=== PATIENT | female | born 1940 | race Caucasian/White ===

== ENCOUNTER 2017-07-20 13:35 | Outpatient (CLI) | payer MEDICARE, OTHER ==
[~2017-07-20 13:35] MED LIST: ALPR-624 PO; ASPI-83 PO; CYCL1DRO6 OP; HYDR-3965 PO; LEVO75TA PO; LOP25T PO; ZOL50T PO
[2017-07-20 14:26] LABS: BASOPHILS % (AUTO) 0.4 % (0-1); EOSINOPHILS # (AUTO) 0.2 X10'3 (0-0.9); EOSINOPHILS % (AUTO) 5.4 % (0-6); HEMATOCRIT 39.4 % (35.0-45.0); LYMPHOCYTES % (AUTO) 24.3 % (21-51); MEAN CORPUSCULAR HEMOGLOBIN 33.1 PG (27.0-31.0); MEAN CORPUSCULAR HGB CONC 35.6 % (33.0-36.5); MEAN PLATELET VOLUME 8.4 FL (7.4-10.4); MONOCYTES # (AUTO) 0.3 X10'3 (0-0.9); MONOCYTES % (AUTO) 7.3 % (2-12); NEUTROPHILS # (AUTO) 2.5 X10'3 (1.8-7.7); NEUTROPHILS % (AUTO) 62.6 % (42-75); PLATELET COUNT 150 X10'3 (140-440); RED BLOOD COUNT 4.23 X10'6 (4.20-5.60); RED CELL DISTRIBUTION WIDTH 12.7 % (11.5-14.5); WHITE BLOOD COUNT 4.1 X10'3 (4.5-11.0)
[2017-07-20 14:31] LABS: INR 1.1 INR; PARTIAL THROMBOPLASTIN TIME 26 SECONDS (22-32); PROTHROMBIN TIME 11.4 SECONDS (9.0-12.0)
[2017-07-20 14:35] LABS: ALANINE AMINOTRANSFERASE 26 U/L (12-78); ALBUMIN 3.9 G/DL (3.4-5.0); ALKALINE PHOSPHATASE 49 IU/L (46-116); ANION GAP 10 (8-16); ASPARTATE AMINO TRANSFERASE 19 U/L (10-37); BILIRUBIN,TOTAL 0.7 MG/DL (0.1-1.0); BLOOD UREA NITROGEN 21 MG/DL (7-18); BUN/CREATININE RATIO 25.6 (6.6-38.0); CALCIUM 9.1 MG/DL (8.5-10.1); CHLORIDE 104 MMOL/L (99-107); CREATININE 0.82 MG/DL (0.40-0.90); GLUCOSE 120 MG/DL (70-104); SODIUM 141 MMOL/L (135-145); TOTAL CARBON DIOXIDE 27.3 MMOL/L (24-32); TOTAL PROTEIN 7.7 G/DL (6.4-8.2); eGFR 68 ML/MIN
== END 2017-07-20 23:59 | disposition home or self-care (01) ==
LOC: LAB 13:35
PROVIDERS: ATTEND Otolaryngology
DX: D69.1 Qualitative platelet defects (principal); I10 Essential (primary) hypertension; J45.909 Unspecified asthma, uncomplicated
CPT/HCPCS: 36415; 80053; 85025; 85576; 85610; 85730

== ENCOUNTER 2017-10-20 00:04 | Emergency (ER) | payer MEDICARE, OTHER ==
[~2017-10-20] VITALS: Ht 175.3 cm; Wt 93.2 kg
[2017-10-20] MEDS ORDERED: CEPH500C5 PO (01:07)
[2017-10-20] MEDS ORDERED: TETanus/Pertussis (Acell)/Diphther VAC/PF (Tdap-Adult) 0.5ml syringe IMVAC ONE (01:10)
[2017-10-20] MEDS ORDERED: cephalexin 500mg capsule PO ONE (01:10)
[2017-10-20 01:25] VITALS: BP 107/66
== END 2017-10-20 01:27 | disposition home or self-care (01) ==
LOC: ER 00:05
DX: S80.11XA Contusion of right lower leg, initial encounter (principal); L03.115 Cellulitis of right lower limb; I10 Essential (primary) hypertension; I48.91 Unspecified atrial fibrillation; Z98.890 Other specified postprocedural states; Z88.8 Allergy status to other drugs, medicaments and biological substances; Z88.5 Allergy status to narcotic agent; Z79.82 Long term (current) use of aspirin; Z79.899 Other long term (current) drug therapy; W01.0XXA Fall on same level from slipping, tripping and stumbling without subsequent striking against object, initial encounter; Y93.89 Activity, other specified; Y92.89 Other specified places as the place of occurrence of the external cause; Y99.8 Other external cause status
CPT/HCPCS: 90471; 90715; 99284

== ENCOUNTER 2017-11-16 00:12 | Emergency (ER) | payer MEDICARE, OTHER ==
[~2017-11-16] VITALS: Ht 175.3 cm; Wt 90.0 kg
[~2017-11-16 00:12] MED LIST changes: +CEPH500C5 PO
[2017-11-16 00:49] LABS: BASOPHILS % (AUTO) 0.3 % (0-1); EOSINOPHILS # (AUTO) 0.2 X10'3 (0-0.9); EOSINOPHILS % (AUTO) 4.2 % (0-6); HEMATOCRIT 38.6 % (35.0-45.0); HEMOGLOBIN 13.3 g/dl (12.0-16.0); LYMPHOCYTES # (AUTO) 0.8 X10'3 (1.1-4.8); LYMPHOCYTES % (AUTO) 17.4 % (21-51); MEAN CORPUSCULAR HEMOGLOBIN 32.5 PG (27.0-31.0); MEAN CORPUSCULAR HGB CONC 34.5 % (33.0-36.5); MEAN CORPUSCULAR VOLUME 94.3 FL (78-98); MEAN PLATELET VOLUME 8.1 FL (7.4-10.4); MONOCYTES # (AUTO) 0.3 X10'3 (0-0.9); MONOCYTES % (AUTO) 6.1 % (2-12); PLATELET COUNT 129 X10'3 (140-440); RED BLOOD COUNT 4.09 X10'6 (4.20-5.60); WHITE BLOOD COUNT 4.3 X10'3 (4.5-11.0)
[2017-11-16 00:57] LABS: INR 1.1 INR; PROTHROMBIN TIME 11.3 SECONDS (9.0-12.0)
[2017-11-16 01:02] LABS: ALANINE AMINOTRANSFERASE 22 U/L (12-78); ALBUMIN 3.8 G/DL (3.4-5.0); ALKALINE PHOSPHATASE 45 IU/L (46-116); ANION GAP 9 (8-16); ASPARTATE AMINO TRANSFERASE 18 U/L (10-37); BILIRUBIN,TOTAL 0.7 MG/DL (0.1-1.0); BLOOD UREA NITROGEN 15 MG/DL (7-18); BUN/CREATININE RATIO 17.2 (6.6-38.0); CALCIUM 9.4 MG/DL (8.5-10.1); CHLORIDE 102 MMOL/L (99-107); CREATININE 0.87 MG/DL (0.40-0.90); GLUCOSE 133 MG/DL (70-104); SODIUM 138 MMOL/L (135-145); TOTAL CARBON DIOXIDE 27.4 MMOL/L (24-32); TOTAL PROTEIN 7.5 G/DL (6.4-8.2); eGFR 63 ML/MIN
[2017-11-16] MEDS ORDERED: ketorolac trometh. 30mg/ml inj. IV ONE (01:40)
[2017-11-16 01:50] VITALS: BP 166/100
== END 2017-11-16 02:21 | disposition home or self-care (01) ==
LOC: ER 00:13
DX: R10.84 Generalized abdominal pain (principal); R11.2 Nausea with vomiting, unspecified; I48.91 Unspecified atrial fibrillation; I10 Essential (primary) hypertension; Z98.890 Other specified postprocedural states; Z88.8 Allergy status to other drugs, medicaments and biological substances; Z88.5 Allergy status to narcotic agent; Z79.82 Long term (current) use of aspirin; Z79.899 Other long term (current) drug therapy
CPT/HCPCS: 36415; 80053; 85025; 85610; 96374; 99284; J1885

== ENCOUNTER 2021-07-26 04:01 | Emergency (ER) | payer MEDICARE, OTHER ==
[~2021-07-26] VITALS: Ht 172.7 cm; Wt 90.9 kg
[~2021-07-26 04:01] MED LIST changes: -CEPH500C5 PO; +SERT-153 PO; -ZOL50T PO
[2021-07-26 05:45] LABS: CLARITY,URINE CLEAR (Clear); COLOR,URINE YELLOW (Yellow); GLUCOSE, URINE NEGATIVE (Neg); KETONES,URINE NEGATIVE (Neg); LEUKOCYTE ESTERASE ,URINE NEGATIVE (Neg); NITRITES, URINE NEGATIVE (Neg); OCCULT BLOOD,URINE NEGATIVE (Neg); PROTEIN,URINE NEGATIVE (Neg); UROBILINOGEN,URINE 0.2 E.U/dL (0.2-1.0)
[2021-07-26 05:51] LABS: UA COLLECTION TYPE CLN CATCH MIDSTREAM
--- NOTE | 2021-07-26 06:45 | NUR ---
Received report from night shift manager nurse. Pt's labs had not been drawn yet. IV established, labs drawn. Pt alert & oriented x3. c/o restless leg syndrome. legs massaged, moved pt up in bed.
[2021-07-26 07:21] LABS: ALANINE AMINOTRANSFERASE 15 U/L (12-78); ALBUMIN 3.3 G/DL (3.4-5.0); ALBUMIN/GLOBULIN RATIO 0.8 (1.1-1.5); ALKALINE PHOSPHATASE 121 IU/L (46-116); ANION GAP 8 (8-16); ASPARTATE AMINO TRANSFERASE 16 U/L (10-37); BASOPHILS % (AUTO) 0.5 % (0-1); BILIRUBIN,TOTAL 0.8 MG/DL (0.1-1.0); BLOOD UREA NITROGEN 12 MG/DL (7-18); BUN/CREATININE RATIO 14.8 (6.6-38.0); CALCIUM 8.6 MG/DL (8.5-10.1); CHLORIDE 104 MMOL/L (99-107); CREATININE 0.81 MG/DL (0.40-0.90); EOSINOPHILS # (AUTO) 0.2 X10'3 (0-0.9); EOSINOPHILS % (AUTO) 5.4 % (0-6); GLUCOSE 115 MG/DL (70-104); HEMATOCRIT 35.1 % (35.0-45.0); LIPASE 56 U/L (73-393); LYMPHOCYTES # (AUTO) 0.8 X10'3 (1.1-4.8); LYMPHOCYTES % (AUTO) 21.5 % (21-51); MEAN CORPUSCULAR HEMOGLOBIN 31.8 PG (27.0-31.0); MEAN CORPUSCULAR HGB CONC 34.1 g/dL (33.0-36.5); MEAN CORPUSCULAR VOLUME 93.1 FL (78-98); MEAN PLATELET VOLUME 8.6 FL (7.4-10.4); MONOCYTES # (AUTO) 0.4 X10'3 (0-0.9); MONOCYTES % (AUTO) 9.4 % (2-12); NEUTROPHILS # (AUTO) 2.4 X10'3 (1.8-7.7); NEUTROPHILS % (AUTO) 63.2 % (42-75); PLATELET COUNT 159 X10'3 (140-440); RED BLOOD COUNT 3.77 X10'6 (4.20-5.60); RED CELL DISTRIBUTION WIDTH 12.6 % (11.5-14.5); SODIUM 139 MMOL/L (135-145); TOTAL CARBON DIOXIDE 27.3 MMOL/L (24-32); TOTAL PROTEIN 7.2 G/DL (6.4-8.2); WHITE BLOOD COUNT 3.8 X10'3 (4.5-11.0); eGFR 68 ML/MIN
[2021-07-26 07:52] VITALS: BP 107/81
== END 2021-07-26 08:12 | disposition home or self-care (01) ==
LOC: ER 04:04
DX: R39.15 Urgency of urination (principal); R33.9 Retention of urine, unspecified; R31.9 Hematuria, unspecified; I48.91 Unspecified atrial fibrillation; I10 Essential (primary) hypertension; Z87.19 Personal history of other diseases of the digestive system; Z88.1 Allergy status to other antibiotic agents; Z88.8 Allergy status to other drugs, medicaments and biological substances; Z79.899 Other long term (current) drug therapy; Z79.82 Long term (current) use of aspirin
CPT/HCPCS: 36415; 71045; 80053; 81003; 83690; 85025; 99284

== ENCOUNTER 2021-09-30 10:13 | Emergency (ER) | payer MEDICARE, OTHER ==
[~2021-09-30] VITALS: Ht 172.7 cm; Wt 85.9 kg
[2021-09-30 15:10] VITALS: BP 132/86
== END 2021-09-30 15:14 | disposition home or self-care (01) ==
LOC: ER 10:13
DX: R07.81 Pleurodynia (principal); R11.0 Nausea; I48.91 Unspecified atrial fibrillation; I10 Essential (primary) hypertension; Z98.890 Other specified postprocedural states; Z88.1 Allergy status to other antibiotic agents; Z79.82 Long term (current) use of aspirin; Z79.899 Other long term (current) drug therapy
CPT/HCPCS: 71101; 99284

== ENCOUNTER 2022-01-14 21:39 | Emergency (ER) | payer MEDICARE, OTHER ==
[~2022-01-14] VITALS: Ht 172.7 cm; Wt 90.9 kg
[2022-01-14 22:16] VITALS: BP 125/73
== END 2022-01-15 02:48 | disposition left against medical advice (07) ==
LOC: ER 21:40
DX: T81.9XXA Unspecified complication of procedure, initial encounter (principal); Z53.21 Procedure and treatment not carried out due to patient leaving prior to being seen by health care provider

== ENCOUNTER 2022-05-14 17:37 | Emergency (ER) | payer MEDICARE, OTHER ==
[~2022-05-14] VITALS: Ht 172.7 cm; Wt 77.3 kg
[2022-05-14] MEDS ORDERED: levetiracetam inj 1,000 MG in normal saline 100ml IV soln 90 ML IV ONE (18:05)
[2022-05-14] MEDS ORDERED: levetiracetam inj 1,000 MG in normal saline 100ml IV soln 100 ML IV ONE (18:16)
[2022-05-14 18:36] LABS: BASOPHILS % (AUTO) 0.5 % (0-1); EOSINOPHILS # (AUTO) 0.1 X10'3 (0-0.9); EOSINOPHILS % (AUTO) 2.2 % (0-6); HEMATOCRIT 36.4 % (35.0-45.0); HEMOGLOBIN 12.7 g/dl (12.0-16.0); LYMPHOCYTES # (AUTO) 0.4 X10'3 (1.1-4.8); LYMPHOCYTES % (AUTO) 12.8 % (21-51); MEAN CORPUSCULAR HEMOGLOBIN 32.3 PG (27.0-31.0); MEAN CORPUSCULAR VOLUME 92.3 FL (78-98); MEAN PLATELET VOLUME 8.3 FL (7.4-10.4); MONOCYTES # (AUTO) 0.3 X10'3 (0-0.9); MONOCYTES % (AUTO) 8.5 % (2-12); NEUTROPHILS # (AUTO) 2.4 X10'3 (1.8-7.7); PLATELET COUNT 132 X10'3 (140-440); RED BLOOD COUNT 3.94 X10'6 (4.20-5.60); RED CELL DISTRIBUTION WIDTH 13.5 % (11.5-14.5); WHITE BLOOD COUNT 3.2 X10'3 (4.5-11.0)
[2022-05-14] MEDS ORDERED: metoclopramide 5 mg/ml inj IV ONE (18:45)
[2022-05-14 18:51] LABS: ALANINE AMINOTRANSFERASE 23 U/L (12-78); ALBUMIN 3.7 G/DL (3.4-5.0); ALKALINE PHOSPHATASE 58 IU/L (46-116); ANION GAP 10 (8-16); ASPARTATE AMINO TRANSFERASE 26 U/L (10-37); BILIRUBIN,TOTAL 0.8 MG/DL (0.1-1.0); BLOOD UREA NITROGEN 8 MG/DL (7-18); BUN/CREATININE RATIO 10.3 (6.6-38.0); CALCIUM 9.9 MG/DL (8.5-10.1); CHLORIDE 104 MMOL/L (99-107); CREATININE 0.78 MG/DL (0.40-0.90); GLUCOSE 119 MG/DL (70-104); POTASSIUM 3.6 MMOL/L (3.5-5.1); SODIUM 141 MMOL/L (135-145); TOTAL CARBON DIOXIDE 26.6 MMOL/L (24-32); TOTAL PROTEIN 7.5 G/DL (6.4-8.2); eGFR 71 ML/MIN
[2022-05-14 20:10] LABS: CLARITY,URINE CLEAR (Clear); COLOR,URINE YELLOW (Yellow); GLUCOSE, URINE NEGATIVE (Neg); KETONES,URINE 15 mg/dl (Neg); LEUKOCYTE ESTERASE ,URINE NEGATIVE (Neg); NITRITES, URINE NEGATIVE (Neg); OCCULT BLOOD,URINE NEGATIVE (Neg); PH,URINE 6.5 (4.8-8.0); PROTEIN,URINE NEGATIVE (Neg); UROBILINOGEN,URINE 0.2 E.U/dL (0.2-1.0)
[2022-05-14 20:17] LABS: UA COLLECTION TYPE CLN CATCH MIDSTREAM
[2022-05-14 21:00] VITALS: BP 125/104
== END 2022-05-14 21:03 | disposition home or self-care (01) ==
LOC: ER 17:37
DX: R56.9 Unspecified convulsions (principal); I10 Essential (primary) hypertension; Z88.1 Allergy status to other antibiotic agents; Z88.8 Allergy status to other drugs, medicaments and biological substances; Z88.6 Allergy status to analgesic agent
CPT/HCPCS: 36415; 70450; 71045; 80053; 81003; 84145; 84484; 85025; 96374; 96375; 99285; J1953; J2765; J3490; A4615

== ENCOUNTER 2024-11-15 10:28 | Inpatient (IN) | payer MEDICARE, OTHER ==
[~2024-11-15] VITALS: Ht 175.3 cm; Wt 84.1 kg
[~2024-11-15 10:28] MED LIST changes: -ALPR-624 PO; -ASPI-83 PO; +BUPR1FIL54 SL; +CHOL50004 PO; -CYCL1DRO6 OP; -HYDR-3965 PO; +LEVE500T PO; +LEVO137C5 PO; -LEVO75TA PO; -LOP25T PO; +METO-395 PO; +MULT-1085 PO; +PANT40TA54 PO; +ROTI1PAT TOP
--- NOTE | 2024-11-15 11:18 | RADIOLOGY REPORT ---
CT CT HEAD INDICATION: Headache, on blood thinner EXAM DATE: 11/15/2024 10:52 AM COMPARISON: CT HEAD on DOS: 05/14/22 RADIATION DOSE: CTDIvol: 39 mGy, DLP: 677 mGy*cm PROCEDURE: CT scans of the head were obtained from the vertex to the skull base. Sagittal and coronal reconstructions were provided. All CT scans at this medical facility are performed using dose modulation techniques as appropriate t o a performed exam including the following: Automated exposure control was utilized; adjustment of th e MA and/or KV according to patient size; and use of iterative reconstruction technique. FINDINGS: There is sulcal and ventricular prominence. The brain otherwise shows normal morphology a nd fuentes-white matter differentiation, without intracranial hemorrhage, extra-axial fluid collection, mass effect or acute large vessel infarct. The ventricles are normal in size. The basal cisterns are patent. The skull and visible facial bones are intact. Prominent opacification of the sphenoid sinus. The paranasal sinuses, mastoid air cells and middle ear cavities are otherwise well-aerated. The sof t tissues of the scalp are unremarkable. IMPRESSION: No acute intracranial abnormality.
--- NOTE | 2024-11-15 12:27 | Physician Documentation ---
History of Present Illness ~ Chief Complaint: Stroke Alert Stated Complaint: GENERAL ILLNESS Time Seen by MD: 11:21 Primary Medical Doctor: [facility] Mode of Arrival: EMS HPI 84-year-old female who presents with an episode of left-sided weakness She tells me that at about 8:00 a.m. this morning, she suddenly felt an abnormal sensation to the left side of her head, describes it as a tingling discomfort. She got up out of her chair, noticed that she was having trouble walking. She felt like it was difficult to move her left leg. She also reports having some difficulty using her left arm. She went and woke up her , and reported to him these symptoms and so he called 911. She states that she felt normal when she went to bed last night and also thinks that she felt normal when she woke up this morning. Currently she also feels normal, denies any symptoms at this time. No recent infectious symptoms. No current headache. No visual changes. No difficulty with speech. No tingling numbness or weakness to her extremities currently. No history of stroke or TIA. She has been on anticoagulation in the past but not for the past 1 year. Her did give her a dose of Xarelto this morning that was left over from her previous meds. Does have a history of seizures and is on seizure medication, but denies that this was similar to past seizures. Medication Reconciliation Allergies: Coded Allergies: amoxicillin (Verified Allergy, Unknown, 11/15/24) MOUTH RASH clavulanic acid (Verified Allergy, Unknown, 11/15/24) MOUTH RASH diphenhydramine (Verified Allergy, Unknown, 11/15/24) hydroxyzine (Verified Allergy, Unknown, 11/15/24) morphine (Verified Allergy, Unknown, 11/15/24) prochlorperazine (Verified Allergy, Unknown, 11/15/24) nalbuphine (Verified Adverse Reaction, Unknown, 01/14/22) ITCHING, ANXIETY ondansetron (Verified Adverse Reaction, Unknown, headache, 07/26/21) Scheduled Buprenorphine HCl/Naloxone HCl (Bupreno-Nalox 2-0.5 mg Sl Film), 1 STRIP SL BID, (Reported) Cholecalciferol (Vitamin D3) (Vitamin D3), 1 CAP PO DAILY, (Reported) Docosahexanoic Acid/Epa (Fish Oil 1,000 Mg Softgel), 1,000 MG PO DAILY, (Reported) Levetiracetam (Levetiracetam), 2 TAB PO BID, (Reported) Levothyroxine Sodium (Levothyroxine Sodium), 1 TAB PO DAILY, (Reported) Metoprolol Succinate (Metoprolol Succinate), 1 TAB PO DAILY, (Reported) Multivitamin (Multi Vitamin Daily), 1 TAB PO DAILY, (Reported) Pantoprazole Sodium (Pantoprazole Sodium), 40 MG PO BKF, (Reported) Rotigotine (Neupro), 1 PATCH TOP DAILY, (Reported) Sertraline HCl (Sertraline HCl), 2 TAB PO DAILY, (Reported) Discontinued Medications Levothyroxine Sodium (Levothyroxine), 1 CAP PO DAILY, (Reported) Discontinued Reason: patient no longer taking Past Medical History Past Medical History: Seizures, Atrial Fibrillation, Hypertension, Diverticulitis, Breast Cancer Past Surgical History: orthopedic surgeries Alcohol Use: None Drug Use: none Lives with: Family Lives In: Home Occupation: retired Review of Systems All Other Systems at this time: Reviewed and Negative Constitutional: Denies: fever Neurological: Denies: headache, dizziness, left sided numbness, right sided numbness, left sided weakness, right sided weakness Physical Exam Vital Signs: Temperature: 98.2, Source: Oral, Heart Rate: 52, Respiratory Rate: 16, BP: 148/79, Pulse Oximetry: 95, Weight: 84.090 Oxygen Flow Rate: 0 General Appearance General: This is a pleasant and overall well-appearing elderly woman, and neighbor at bedside HEENT: Atraumatic, oropharynx is moist. No facial droop, smile is symmetric Heart: Regular rate and rhythm, no audible murmur, normal-appearing peripheral perfusion Lungs: Clear breath sounds bilateral, normal work of breathing, normal oxygen saturation on room air Abdomen: Soft, nondistended Neuro: Alert and oriented. Cranial nerves 2-12 grossly intact, no facial droop , clear speech. Normal strength in major muscle groups of the upper and lower extremities. No arm or leg drift. She is able to stand and walk without any apparent difficulty at this time. No focal neurologic deficits normally. She does have some difficulty with memory function. NIH stroke scale 0 Psychiatric: Calm and cooperative with exam Progress Results/Orders Results/Orders Orders - NESTOR ARREDONDO MD Ct Head (11/15/24 10:50) Monitor (11/15/24 12:16) 2 Large Bore Ivs (11/15/24 12:16) Chest,Single View (11/15/24 12:46) Accucheck (11/15/24 12:16) Ct Stroke Alert (11/15/24 12:16) Page Hospitalist (11/15/24 12:18) Completed Orders - NESTOR ARREDONDO MD Ct Head (11/15/24 10:50) Cbc/Diff (11/15/24 12:16) Electrocardiogram (11/15/24 12:16) Chest,Single View (11/15/24 12:46) BMP (11/15/24 12:16) PTT (11/15/24 12:16) Pt Inr (11/15/24 12:16) MG (11/15/24 12:16) Vital Signs 11/15/24 11/15/24 11/15/24 11/15/24 10:31 10:43 10:52 11:48 Temp 98.2 98.2 Pulse 62 58 52 Resp 16 16 16 16 B/P (MAP) 154/90 136/75 (95) 148/79 (102) Pulse Ox 95 94 95 O2 Flow Rate 0 0 0 EKG/XRAY/CT/US/VASC/MRI CT : Impression Head CT: I personally interpreted the CT scan, and this shows no fracture or internal hemorrhage Consults/PCP Consults/PCP : Additional Comment Consult: I spoke to the internal medicine service, for admission in the hospital Medical Decision Making Differential Dx:Considerations: Include: CVA, Electrolyte imbalance, Mass lesion, Subarachnoid Hemorrhage, TIA Assessment 84-year-old female who presents with an episode of left-sided neurologic symptoms. Here in the ED she is currently asymptomatic, has no focal neurologic deficits on my exam, has NIH stroke scale of 0. Head CT obtained shows no intracranial hemorrhage. I did not give her an aspirin given that her gave her a dose of Xarelto this morning. Overall, this seems like you could represent a TIA, and so she will be admitted to the medicine service for further stroke workup and preventative treatment Departure Impression: Primary Impression: TIA (transient ischemic attack) Additional Impression: Left-sided weakness Referrals: NO PRIMARY CARE PROVIDER (PCP) Signature Scribe Signature: na Attestation: NESTOR Darden MD Nov 15, 2024 12:27
[2024-11-15] MEDS ORDERED: HYDROcodone/acetaminophen 5mg/325mg tablet PO PRN (12:35)
[2024-11-15] MEDS ORDERED: potassium Cl 20 mEq SR tablet PO PRN ×2 (12:35)
[2024-11-15] MEDS ORDERED: potassium Cl 40MEQ/1/2NS 520ml 520 ML IV PRN (12:35)
[2024-11-15] MEDS ORDERED: magnesium sulf-water 2g/50mL 50 ML IV PRN (12:35)
[2024-11-15] MEDS ORDERED: HYDROcodone/acetaminophen 10/325mg tab PO PRN (12:35)
[2024-11-15] MEDS ORDERED: mag hydrox/Alum hydrox/simeth 30ml oral suspension PO PRN (12:35)
[2024-11-15] MEDS ORDERED: magnesium sulf-water 4G/100mL 100 ML IV PRN (12:35)
[2024-11-15] MEDS ORDERED: ondansetron/PF 4mg/2ml inj IV PRN (12:35)
[2024-11-15] MEDS ORDERED: magnesium hydroxide 30ml (MOM) UD suspension PO PRN (12:35)
--- NOTE | 2024-11-15 12:38 | ELECTROCARDIOGRAPH REPORT ---
[facility] Test Date: 2024-11-15 Test Time: 12:37:05 Pat Name: RORY MARTINES Department: [facility] Patient ID: [facility]-[id number] Room: Gender: F Edger Tailer: : 1940 Requested By: NESTOR ARREDONDO Order Number: [id number] Reading MD: Measurements Intervals [place] Rate: 55 P: 45 WV: 227 QRS: 38 QRSD: 90 T: 49 QT: 442 QTc: 423 Interpretive Statements Sinus bradycardia Prolonged WV interval Probable left atrial enlargement Please click the below link to view image of tracing.
[2024-11-15 12:57] LABS: MEAN PLATELET VOLUME 7.9 FL (7.4-10.4); RED CELL DISTRIBUTION WIDTH 12.9 % (11.5-14.5)
[2024-11-15 13:12] LABS: APTT 35 SECONDS (22-32); INR 1.5 INR
[2024-11-15 13:15] LABS: CHOL/HDL RATIO 5.6 (0.00-4.99); CREATININE 0.94 MG/DL (0.40-0.90); LDL CHOLESTEROL 152 MG/DL (50-100); TOTAL CARBON DIOXIDE 29.6 MMOL/L (24-32); eCRCL 48 ML/MIN; eGFR 57 ML/MIN
[2024-11-15] MEDS: PERFLUTREN PROTEIN-A MICROSPHR (Optison) 0.22 MG/ML 3ML VIAL IV ONE (13:15)
--- NOTE | 2024-11-15 13:41 | RADIOLOGY REPORT ---
DI CHEST,SINGLE VIEW, HISTORY: Stroke Alert COMPARISON: DI CHEST,SINGLE VIEW on DOS: 07/05/23, CHEST,SINGLE VIEW on DOS: 05/14/22, UNI RIBS WITH PA CHEST on DOS: 09/30/21 DI CHEST,SINGLE VIEW on DOS: 07/05/23, CHEST,SINGLE VIEW on DOS: 05/14/22, UNI RIBS WITH PA CHEST on DOS : 09/30/21 TECHNICAL DATA: 1 view of the chest was obtained. FINDINGS: Lines and tubes: None Cardiomediastinal silhouette: prominent Pulmonary vasculature: normal Lung expansion: normal Lung airspace: normal Lung interstitium: normal Pleura: Trace left pleural effusion. Pneumothorax: no Bones: Unremarkable Other: no IMPRESSION: Trace left pleural effusion.
[2024-11-15] MEDS ORDERED: PANT40TA54 PO (14:07)
[2024-11-15] MEDS ORDERED: LEVO125T8 PO (14:26)
[2024-11-15] MEDS ORDERED: OMEG-5 PO (14:26)
--- NOTE | 2024-11-15 14:27 | [facility] CONSULT REPORT ---
[facility] Procedure Note [facility] Procedure Note Consult [facility] Note # Demographics Consult Type: General Neurology Patient Location: Emergency Room First Name: RORY Last Name: CONRAD Date of : 1940 Age: 84 Gender: Female Facility: [facility] Time of Initial Page (): 11/15/2024 13:29 First Contact with Site (): 11/15/2024 13:30 # HPI Chief Complaint: - numbness History: 84 y/o F presented with strange sensation in L side of her head associated with LUE/LLE numbness and weakness, which resolved after 10 minutes. This occurred around 8 AM. She denies a headache, double vision, loss of vision, slurred speech or word finding difficulty. She has a history of a TIA in the past. Duration: - resolved # Scores Time of exam and NIHSS (): 11/15/2024 14:16 Level of Consciousness 1a: [0] = Alert; keenly responsive LOC Questions 1b: [1] = Answers one correctly LOC Commands 1c: [0] = Performs both tasks correctly Best Gaze 2: [0] = Normal Visual 3: [0] = No visual loss Facial Palsy 4: [0] = Normal symmetrical movements Motor Arm Left 5a: [0] = No drift Motor Arm Right 5b: [0] = No drift Motor Leg Left 6a: [0] = No drift Motor Leg Right 6b: [0] = No drift Limb Ataxia 7: [0] = Absent Sensory 8: [0] = Normal Best Language 9: [0] = No aphasia Dysarthria 10: [0] = Normal Extinction and Inattention 11: [0] = No abnormality NIHSS Total: 1 # Exam Vitals: vital signs reviewed SBP: 136 DBP: 71 # ROS Additional: - complete review of systems otherwise negative # PMH-FH-SH Past Medical History: - TIA Medications: - No antithrombotics or anticoagulants reported MVI # Data Head CT: - no bleed - per radiologist read # Assessment Impression: - Transient Ischemic Attack # Plan Thrombolytic/Intervention: NOT IV Thrombolysis or IA Intervention candidate Thrombolytic Exclusion (< 3 hour window): - non-disabling deficit Intraarterial Exclusion: - clinical exam not consistent with presence of large vessel occlusion (LVO), can reconsider if LVO found on vascular imaging Blood Pressure Management: - labetalol Target Blood Pressure: - SBP < 220 - DBP < 120 Labs: - CBC - comprehensive metabolic panel - hemoglobin A1c - lipid panel - ua - troponin - TSH Imaging: (urgency: routine): - MRI Brain without contrast - MR Angiogram Neck with contrast - MR Angiogram Head without contrast Diagnostic Test: - echo with bubble study Therapy/Evaluation: - NPO until swallow evaluation - PT/OT evaluation - speech/swallow consultation Medication: - aspirin 81 mg PLUS clopidogrel (Plavix) 75 mg for 21 days, then monotherapy therafter - start statin with goal of LDL < 70 DVT Prophylaxis: - enoxaprin (Lovenox) 40 mg subcutaneously daily Other: - If patient has any neurological deterioration please call me back immediately - permissive hypertension - will need event monitor or loop recorder as outpatient if atrial fibrillation not found as inpatient - I have discussed my recommendations with the referring provider - telemetry monitoring Disposition: admit # Logistics Attestation of consult completion: The patient is located at: [facility]. Facility staff participated in the visit. I performed this telemedicine visit from my offsite office utilizing interactive 2 way audio and visual telecommunication technology at the request of the onsite emergency room provider. Total time spent in telemedicine encounter: I spent 20 minutes reviewing clinical data and/or imaging, obtaining history, examining the patient, communicating with the onsite care team, and in preparation of this report. # Demographics First Name: RORY Last Name: CONRAD Facility: [facility] Electronically signed at 11/15/2024 14:26 (Aurelia Time) by Safia Erickson MD Neuro Consult Order placed for: Yes SAFIA ERICKSON MD Nov 15, 2024 14:26
--- NOTE | 2024-11-15 14:33 | HISTORY AND PHYSICAL ---
History & Physical Providers to CC ~ History of Present Illness Reason for Admit\Complaint: CVA vs TIA History of Present Illness Candace Ortez is a 84-year-old female with a past medical history of seizures and TIA who was brought to the ED via ambulance with chief complaint of acute onset left upper extremity weakness with associated symptoms of tingling and abnormal sensation to the left side of her head that started this morning around 8:00 am which now all have subsided. Patient is a poor historian. Patient denies prior NM/CAD, CVA, cardiac arrhythmia, DVT/PE, or GIB. Patient denies chest pain, palpitations, shortness of breath, abdominal pain, n/v/d, fever, chills, dysuria, blurry vision, fall or loss of consciousness, slurred speech. Allergies: Coded Allergies: amoxicillin (Verified Allergy, Unknown, 11/15/24) MOUTH RASH clavulanic acid (Verified Allergy, Unknown, 11/15/24) MOUTH RASH diphenhydramine (Verified Allergy, Unknown, 11/15/24) hydroxyzine (Verified Allergy, Unknown, 11/15/24) morphine (Verified Allergy, Unknown, 11/15/24) prochlorperazine (Verified Allergy, Unknown, 11/15/24) nalbuphine (Verified Adverse Reaction, Unknown, 01/14/22) ITCHING, ANXIETY ondansetron (Verified Adverse Reaction, Unknown, headache, 07/26/21) Home Medications Home Medications Active Reported Fish Oil 1,000 Mg Softgel (Docosahexanoic Acid/Epa) 300 Mg-1,000 Mg Capsule 1,000 Mg PO DAILY 30 Days WITH MEALS Levothyroxine Sodium 125 Mcg Tablet 1 Tab PO DAILY Pantoprazole Sodium 40 Mg Tablet.dr 40 Mg PO BKF Multi Vitamin Daily (Multivitamin) 1 Each Tablet 1 Tab PO DAILY Vitamin D3 (Cholecalciferol (Vitamin D3)) 125 Mcg (5000 Unit) Capsule 1 Cap PO DAILY 30 Days Neupro (Rotigotine) 3 Mg/24 Hour Patch.td24 1 Patch TOP DAILY Bupreno-Nalox 2-0.5 mg Sl Film (Buprenorphine HCl/Naloxone HCl) 2 Mg-0.5 Mg Film 1 Strip SL BID Metoprolol Succinate 25 Mg Tab.sr.24h 1 Tab PO DAILY Levetiracetam 500 Mg Tablet 2 Tab PO BID Sertraline HCl 50 Mg Tablet 2 Tab PO DAILY Past Medical History Past Medical History Seizures TIA Past Surgical History Surgical History Comment Denies Family History Family History: Patient reports no known family medical history. Past Social History Social History Comment Alcohol: Denies Tobacco: Denies, never Illicit drugs: Denies Living situation: Lives at home with spouse ROS ROS Other than positives in HPI, all 14 review of systems are negative Exam Vitals: Vital Signs Date Time Temp Pulse Resp B/P (MAP) Pulse Ox O2 Delivery O2 Flow Rate FiO2 11/15/24 13:08 51 16 136/71 96 11/15/24 12:50 98.2 0 General: A&Ox 3, NAD HEENT: Normocephalic, PERRLA Neck: Supple, trachea midline, no JVD Chest: Clear to auscultation bilaterally Cardiovascular: Bradycardic Abdomen: Soft and nontender Extremities: No cyanosis/clubbing/or edema Central Nervous System: CN II-XII intact, no focal deficits Musculoskeletal: No paraspinal muscle tenderness, no muscle spasm Skin: Warm and intact Diagnostic Data Last Recorded Lab Results: 11/15/24 1248 11/15/24 1248 Diagnostic Data: Laboratory Tests Test 11/15/24 12:48 Prothrombin Time 15.1 SECONDS (9.0-12.0) H INR International Normalized Ratio 1.5 INR Activated Partial Thromboplast Time 35 SECONDS (22-32) H Coagulation Comments Additional Plan Assessment & Plan CVA vs TIA OLIVER vs CKD Hyperlipidemia -CT head negative, EKG sinus at 55bpm, prolonged SWETHA 227 -Teleneurology consulted with impression of TIA -start DAPT x 21 days and monotherapy thereafter, statin, permissive hypertension <220/110 -follow TTE, MRI head, MRA head/neck, telemetry, UA, BSS DVT/VTE Prophylaxis: heparin Code Status: Full Code I spent a total of 35 minutes discussing Advanced Care Planning measures with the patient. Advance care planning: Discussed with patient the importance of advance care planning in case of emergent situation. We discussed various resuscitative measures/ ACP with the patient at the time of admission. Patient voiced understanding and patient has decided on a full code status. Date of Service: Nov 15, 2024 Billing Provider: RICK LOPEZ WEIGHER AND MIXER Common Visit Codes: 50254-[id number] INP/OBS CARE (HIGH) Secondary Visit Codes: 34802-[id number] CARE PLAN 30 MINUTES RICK LOPEZ WEIGHER AND MIXER Nov 15, 2024 14:33
[2024-11-15 14:52] VITALS: BP 138/75; PULSE 61; RESP 16; TEMP 98; O2SAT 98
[2024-11-15] MEDS: aspirin 81mg, enteric-coated 1 TAB TABLET.DR PO ONE (15:00)
[2024-11-15 16:30] VITALS: BP 124/71; PULSE 63; RESP 19; TEMP 97.8; O2SAT 98
[2024-11-15 17:17] VITALS: RESP 19; O2SAT 97
[2024-11-15 18:00] VITALS: BP 128/78; PULSE 57; RESP 16; TEMP 97.2; O2SAT 96
[2024-11-15 20:00] VITALS: RESP 16; O2SAT 96
[2024-11-15] MEDS: K and/or MAG REPLACEMENT MC SCH (20:00)
[2024-11-15] MEDS: docusate sod 100mg capsule PO SCH (20:00)
--- NOTE | 2024-11-15 20:36 | RADIOLOGY REPORT ---
[facility] EXAMINATION: MR MRI HEAD INDICATION: r/o CVA COMPARISON: CT CT HEAD on DOS: 11/15/24, CT HEAD on DOS: 05/14/22 TECHNIQUE: Multiplanar, multisequence magnetic resonance imaging of the brain was performed without the use of i ntravenous contrast. FINDINGS: Moderate diffuse brain atrophy. Oiwr-vy-ybdysoxw chronic small-vessel ischemic changes. Motion artifact limits evaluation of the blood sensitive sequence and sagittal T1. No evidence of acu te or subacute hemorrhage on the T1 and T2 images. No masses, mass effect, midline shift, herniation or cytotoxic edema following a large vascular territory. No intra-axial or extra-axial fluid collecti ons. No evidence of hydrocephalus. Cavum septum pellucidum et vergae. The visualized vascular flow v oids are maintained. The pituitary gland, sella and parasellar regions unremarkable. The cerebellar tonsils are normal pos ition. The cerebellum is unremarkable. Bilateral lens replacement. Otherwise, orbits and globes unremarkable. Near-complete opacification o f the left sphenoid sinus wall hyperostosis consistent with chronic sinus disease. Mild mucoperiostea l thickening of the ethmoid air cells. Mastoids are clear. No worrisome calvarial lesions. IMPRESSION: Study is limited by motion artifact. Otherwise, no evidence of acute intracranial abnormalities. Left sphenoid chronic sinus disease with mild mucoperiosteal thickening of the ethmoid air cells.
--- NOTE | 2024-11-15 21:05 | RADIOLOGY REPORT ---
PROCEDURE: MR MRA HEAD INDICATION: CVA 11/15/2024 07:28 PM COMPARISON: CT CT HEAD on DOS: 11/15/24, CT HEAD on DOS: 05/14/22 TECHNIQUE: MRA head without intravenous contrast. 3D image postprocessing was performed on a dedicated workstation and images were used for interpretat ion and reporting. FINDINGS: There is mild atherosclerotic narrowing of the anterior yiyhtf-hv-Ovcvbp without large vessel occlusi on. There is normal flow related signal within the remainder of the cerebral vasculature. The basila r artery is patent. The intracranial vertebral arteries are unremarkable. There is no evidence of an eurysm. IMPRESSION: 1. No evidence of occlusion or aneurysm. 2. Mild atherosclerotic narrowing of the intracranial vasculature.
--- NOTE | 2024-11-15 21:10 | RADIOLOGY REPORT ---
EXAM: MR MRA NECK DATE OF SERVICE: 11/15/2024 07:55 PM ORDERING PHYSICIAN: RICK LOPEZ REASON FOR EXAM: CVA TECHNIQUE: Time of flight mra images were acquired of the neck. COMPARISON: MR MRA HEAD on DOS: 11/15/24, MR MRI HEAD on DOS: 11/15/24, CT HEAD on DOS: 05/14/22 FINDINGS: The origin of the common carotid and vertebral arteries are not seen due to motion. The visualized common carotid, internal carotid, and vertebral arteries are patent with no evidence f or significant stenosis, occlusion, or dissection. There is no significant narrowing at the carotid b ulbs per NASCET criteria. IMPRESSION: Limited exam with no acute noncontrast MRA abnormality of the major neck arterial vasculature.
[2024-11-15] MEDS: normal saline 1000ml 1,000 ML IV SCH (21:20)
[2024-11-15] MEDS: heparin, porcine 5000 units/ml vial SQ SCH (21:21)
[2024-11-15 22:00] VITALS: BP 124/71; PULSE 63; RESP 19; TEMP 97.8; O2SAT 98
[2024-11-16 05:47] LABS: MEAN PLATELET VOLUME 7.9 FL (7.4-10.4); RED CELL DISTRIBUTION WIDTH 12.7 % (11.5-14.5)
[2024-11-16 05:57] LABS: CREATININE 0.91 MG/DL (0.40-0.90); TOTAL CARBON DIOXIDE 29.7 MMOL/L (24-32); eCRCL 50 ML/MIN; eGFR 59 ML/MIN
[2024-11-16 06:00] VITALS: BP 131/76; PULSE 52; RESP 18; TEMP 97.7; O2SAT 96
[2024-11-16] MEDS: aspirin 81mg, enteric-coated 1 TAB TABLET.DR PO SCH (07:49)
[2024-11-16 07:55] LABS: EOSINOPHILS % (MANUAL) 5.0 % (0-6); LYMPHOCYTES % (MANUAL) 39.0 % (21-51); MONOCYTES % (MANUAL) 7.0 % (2-12); NEUTROPHILS % (MANUAL) 49.0 % (42-75); PLATELET ESTIMATE DECREASED
[2024-11-16 08:00] VITALS: RESP 18; O2SAT 94
[2024-11-16 08:00] LABS: LARGE PLATELETS FEW
[2024-11-16 09:55] LABS: LEUKOCYTE ESTERASE ,URINE NEGATIVE (Neg); NITRITES, URINE NEGATIVE (Neg); OCCULT BLOOD,URINE NEGATIVE (Neg)
[2024-11-16 10:00] VITALS: BP 154/76; PULSE 58; RESP 18; TEMP 98.3; O2SAT 94
[2024-11-16 10:09] LABS: UA COLLECTION TYPE NON-SPECIFIED
--- NOTE | 2024-11-16 10:55 | PROGRESS NOTE ---
Daily Progress Note Providers to CC ~ Objective Vital Signs Date Time Temp Pulse Resp B/P (MAP) Pulse Ox O2 Delivery O2 Flow Rate FiO2 11/16/24 06:00 97.7 52 18 131/76 (94) 96 Room Air 11/15/24 20:00 0.0 Result Diagram: 11/16/24 0519 11/16/2419 Coagulation Studies Laboratory Tests Test 11/15/24 12:48 Prothrombin Time 15.1 SECONDS (9.0-12.0) H INR International Normalized Ratio 1.5 INR Activated Partial Thromboplast Time 35 SECONDS (22-32) H Coagulation Comments RICK LOPEZ LOG GETTER Nov 16, 2024 10:55
[2024-11-16] MEDS: pantoprazole 40mg Tablet.DR PO SCH (13:30)
[2024-11-16] MEDS ORDERED: CLOP75TA34 PO (14:54)
[2024-11-16] MEDS ORDERED: ASPI-1071 PO (14:54)
[2024-11-16] MEDS ORDERED: ATOR20TA66 PO (14:54)
[2024-11-16] MEDS ORDERED: LOSA25TA41 PO (14:55)
--- NOTE | 2024-11-16 17:57 | CARDIOLOGY REPORT ---
APPROVED REPORT EXAM: Comprehensive 2D, Doppler, and color-flow Echocardiogram with saline. Patient Location: [facility] Blood Pressure: 138/75 mmHg Heart Rate: 55 bpm Rhythm: Sinus Bradycardia Indications Syncope Hypertension AFIB No traveling inventory associate previous echo 07/05/23 [facility] 65-70% EF ; m MR AI TR 2D Dimensions LA Diam4.2 cm IVSd 1.3 (0.7-1.1cm) LVDd 4.6 cm PWd 1.3 (0.7-1.1cm) IVSs 1.7 (0.8-1.2cm) LVDs 2.6 (2.5-4.0cm) Aortic Root(2D) 3.4 cm PWs 1.6 (0.8-1.2cm) LVOT Diameter 2.17 (1.8-2.4cm) LVEF(%) 74.2 (>50%) IVC 18.37 mmFS (%) 43.0 % SV 72.6 ml CO 4.0 L/min M-Mode Dimensions MV EPSS 0.3 (<0.5cm) Aortic Valve AoV Peak Sj. 167.4 cm/s AoV VTI 36.6 cm AO Peak GR. 11.2 mmHg AO Mean GR. 5 mmHg LVOT VTI 30.51 cm LVOT Peak Sj. 134.6 cm/s CATHY(VTI)/BSA 3.07 cm2/m2 CATHY (VTI) 3.07 cm2 Mitral Valve MV E Velocity 92.4 cm/s MV Peak Gr. 5 mmHg MV DECEL TIME 216 ms MV A Velocity 77.8 cm/s MV PHT 72 ms E/A Ratio 1.2 MVA (PHT) 3.06 cm2 MR PVif682.4 cm/s MV FEiv157.8 cm/sMR PG Max70.4 mmHg TDI Medial E' P. V 9.45 cm/s E/Medial E' 9.8 Tricuspid Valve TR P. Velocity 279 cm/s RAP ESTIMATE 10 mmHg TR Peak Gr. 31 mmHg RVSP 41 mmHg Pulmonary Vein S1 Velocity 55.0 cm/s D2 Velocity 36.8 cm/s PVa Qpixxbvs54.1 cm/s PVa [id number] msec LEFT VENTRICLE Normal LV size and function. Mild concentric hypertrophy. Overall LVEF is 70%. RIGHT VENTRICLE RV appears mildly dilated with normal contractility. RVSP is estimated at 41 mmHG. ATRIA Left atrium is mildly dilated. Saline study was performed with 2 IV injections of 10 ccs of agitated normal saline at rest, with cough, and with valsalva. Negative saline study for right to left flow. M obile interatrial septum - no flow detected. AORTIC VALVE Trileaflet AV appears sclerotic without stenosis. Mild insufficiency. MITRAL VALVE MV is thickened with mild annular thickenind and no stenosis. Trace to mild mitral regurgitation. TRICUSPID VALVE The tricuspid valve is normal in structure. Moderate tricuspid regurgitation. PULMONIC VALVE The pulmonary valve is normal in structure. Trace pulmonic regurgitation. GREAT VESSELS The aortic root is normal in size. The IVC is normal in size and collapses >50% with inspiration. PERICARDIUM Trivial circumferential pericardial effusion with no evidence of hemodynamic compromise. Other Information Study Quality: Adequate Conclusion Overall LVEF is 70%. Normal LV size and function. Mild concentric hypertrophy. RV appears mildly dilated with normal contractility. RVSP is estimated at 41 mmHG. Saline study was performed with 2 IV injections of 10 ccs of agitated normal saline at rest, with cou gh, and with valsalva. Negative saline study for right to left flow. Mobile interatrial septum - no flow detected. Trace to mild mitral regurgitation. Trileaflet AV appears sclerotic without stenosis. Mild insufficiency. Trace to mild mitral regurgitation. Moderate tricuspid regurgitation. Trace pulmonic regurgitation. Trivial circumferential pericardial effusion with no evidence of hemodynamic compromise.
--- NOTE | 2024-11-16 18:01 | DISCHARGE SUMMARY ---
Discharge Summary Providers to CC ~ Discharge Summary Admission Diagnosis: TIA vs CVA Hospital Course DATE OF ADMISSION: 11/15/24 DATE OF DISCHARGE: 11/16/24 Discharge Diagnosis\Comment: TIA CVA- ruled out OLIVER- cannot exclude Hyperlipidemia Operations\Procedures: None Consultants: Teleneurologist Safia Dewey Complications: None Condition on DC: Stable New Medications: Losartan Potassium (Losartan Potassium) 25 Mg Tablet 1 TAB PO DAILY for 30 Days, #30 TAB 0 Refills Aspirin (Ecotrin*) 81 Mg Tablet.dr 1 TAB PO DAILY for 90 Days, #90 TAB.SR Atorvastatin Calcium (Atorvastatin Calcium) 20 Mg Tablet 40 MG PO HS for 90 Days, #90 TAB Clopidogrel Bisulfate (Clopidogrel) 75 Mg Tablet 75 MG PO DAILY for 20 Days, #20 TAB Do not stop medication unless instructed by prescriber. Continued Medications: Buprenorphine HCl/Naloxone HCl (Bupreno-Nalox 2-0.5 mg Sl Film) 2 Mg-0.5 Mg Film 1 STRIP SL BID Cholecalciferol (Vitamin D3) (Vitamin D3) 125 Mcg (5000 Unit) Capsule 1 CAP PO DAILY for 30 Days, #30 CAP 0 Refills Docosahexanoic Acid/Epa (Fish Oil 1,000 Mg Softgel) 300 Mg-1,000 Mg Capsule 1000 MG PO DAILY for 30 Days, #90 CAP 0 Refills WITH MEALS Levetiracetam (Levetiracetam) 500 Mg Tablet 2 TAB PO BID Levothyroxine Sodium (Levothyroxine Sodium) 125 Mcg Tablet 1 TAB PO DAILY Multivitamin (Multi Vitamin Daily) 1 Each Tablet 1 TAB PO DAILY, 0 Refills Pantoprazole Sodium (Pantoprazole Sodium) 40 Mg Tablet.dr 40 MG PO BKF, TAB.SR Rotigotine (Neupro) 3 Mg/24 Hour Patch.td24 1 PATCH TOP DAILY Sertraline HCl (Sertraline HCl) 50 Mg Tablet 2 TAB PO DAILY, TAB Discontinued Medications: Metoprolol Succinate (Metoprolol Succinate) 25 Mg Tab.sr.24h 1 TAB PO DAILY Discharge Summary: History of Present Illness Candace Ortez is a 84-year-old female with a past medical history of seizures and TIA who was brought to the ED via ambulance with chief complaint of acute onset left upper extremity weakness with associated symptoms of tingling and abnormal sensation to the left side of her head that started this morning around 8:00 am which now all have subsided. Patient is a poor historian. Patient denies prior NM/CAD, CVA, cardiac arrhythmia, DVT/PE, or GIB. Patient denies chest pain, palpitations, shortness of breath, abdominal pain, n/v/d, fever, chills, dysuria, blurry vision, fall or loss of consciousness, slurred speech. Hospital Course Initial diagnostic findings including CT head, EKG, chest x-ray, urinalysis were unremarkable. Teleneurologist was consulted and patient was started on DAPT and statin. Subsequent workups including MRI head, MRA head/neck were unremarkable. TTE showed LVEF 70%, RVSP 41mmHg, trivial circumferential pericardial effusion with no evidence of hemodynamic compromise. Telemetry remained sinus in 80s. Patient did not experience further complications throughout the entire hospital stay and remained clinically and hemodynamically stable. Patient verbalized willingness to be discharged. Patient was seen and examined on the day of discharge. On day of discharge, vss and labs unremarkable. All labs, diagnostic workups, discharge plan discussed with patient in details during visit before discharge. All questions and concerns answered to the best of my professional knowledge. Patient is to be discharged to home to self and to follow-up with PCP within 2 weeks. Physical Exam General: A&Ox 3, NAD HEENT: Normocephalic, PERRLA Neck: Supple, trachea midline, no JVD Chest: Clear to auscultation bilaterally Cardiovascular: RRR, S1&S2 GI: Soft and nontender Extremities: No cyanosis/clubbing/or edema PROCESS SAFETY ENGINEER: CN II-XII intact, no focal deficits Musculoskeletal: No paraspinal muscle tenderness, no muscle spasm Skin: Warm and intact *Problems/Diagnosis: (1) TIA (transient ischemic attack) Status: Acute Total Time Spent on D/C: > 30 Minutes Date of Service: Nov 16, 2024 Billing Provider: RICK LOPEZ Common Visit Codes: 84756-IIS/OBS DISCH DAY >30min RICK LOPEZ Nov 16, 2024 18:01
== END 2024-11-16 16:00 | disposition home or self-care (01) | DRG 69 ==
LOC: ER 10:29 → ED HOLD 12:38 → ORTHO 4S 14:41
PROVIDERS: ADMIT Nurse Practitioner Family; ATTEND Nurse Practitioner Family
DX: G45.9 Transient cerebral ischemic attack, unspecified (principal); N17.9 Acute kidney failure, unspecified; I48.91 Unspecified atrial fibrillation; F41.9 Anxiety disorder, unspecified; I10 Essential (primary) hypertension; E78.5 Hyperlipidemia, unspecified; Z88.5 Allergy status to narcotic agent; Z88.0 Allergy status to penicillin; Z85.3 Personal history of malignant neoplasm of breast; Z88.8 Allergy status to other drugs, medicaments and biological substances
CPT/HCPCS: 36415; 70450; 70544; 70547; 70551; 71045; 80048; 80053; 80061; 81003; 82948; 83036; 83735; 84439; 84443; 84484; 85007; 85025; 85610; 85730; 87081; 93005; 93306; 96360; 96372; 99285; G0378; J1644; J7030